=== PATIENT | male | born 1955 | race Caucasian/White ===

== ENCOUNTER 2022-08-20 19:04 | Emergency (ER) | payer OTHER ==
[~2022-08-20] VITALS: Ht 190.5 cm; Wt 129.3 kg
[~2022-08-20 19:04] MED LIST: CRUTCH1 EACH; CYCLOBENZAPRINE10 MG PO; PERCOCET 10-321 EACH PO
--- OUTSIDE RECORDS SUMMARY | 2022-08-20 19:12 | XMS ---
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 Ross[place] has no Care Guidelines for this patient. Karthik VISIT COUNT (12 MO.) 2 [facility] NOTE: Visits indicate total known visits. ED/C VISIT TRACKING (12 MO.) [facility] COMPLAINT: - SOB 08/10/2022 14:22 [facility] TYPE: Emergency DIAGNOSES: - Shortness of Breath - Pneumonia, unspecified organism - Low Oxygen 08/08/2022 16:19 [facility] TYPE: Emergency DIAGNOSES: - Pneumonia, unspecified organism - Medical Follow Up - Shortness of Breath - Emesis INPATIENT VISIT TRACKING (12 MO.) No inpatient visits to display in this time frame [email or web address]
[2022-08-20] MEDS ORDERED: ATORVASTATIN CA80 MG PO (19:25)
[2022-08-20] MEDS ORDERED: LISINOPRIL-HCT1 EACH PO (19:25)
[2022-08-20] MEDS ORDERED: EZETIMIBE10 MG PO (19:25)
[2022-08-20] MEDS ORDERED: VENTOLIN HFA18 GM INH (22:11)
[2022-08-20] MEDS ORDERED: COMBIVENT RESPIM4 GM INH (22:11)
[2022-08-20] MEDS ORDERED: LEVOFLOXACIN750 MG PO (22:11)
[2022-08-21] MEDS ORDERED: IPRAT-ALBUT 0.5-3 ML INH (07:00)
== END 2022-08-20 22:50 | disposition home or self-care (01) ==
LOC: ED 19:04
DX: J18.9 Pneumonia, unspecified organism (principal); Z20.822 Contact with and (suspected) exposure to COVID-19; I10 Essential (primary) hypertension; E78.00 Pure hypercholesterolemia, unspecified; Z79.899 Other long term (current) drug therapy
CPT/HCPCS: 36415; 71045; 71250; 80053; 83880; 84484; 85025; 87502; 94640; 99285-25; U0003